=== PATIENT | male | born 1990 | race Caucasian/White ===

== ENCOUNTER 2017-11-06 21:14 | Inpatient (IN) | payer OTHER ==
[~2017-11-06] VITALS: Ht 172.7 cm; Wt 93.1 kg
[~2017-11-06 21:14] MED LIST: DIVA-68 PO; ETOMIDATE 40 MG/20 ML ONE; PROPOFOL 10 MG/ML, 100ML IV ONE; SUCCINYLCHOLINE 20 MG/ML, 10ML ONE
[2017-11-06] MEDS ORDERED: LORazepam 2 MG/ML, 1ML ONE (21:16)
[2017-11-06] MEDS ORDERED: SODIUM CHLORIDE 0.9% 1,000ML IVBOLUS ONE ×2 (21:30→22:00)
[2017-11-06] MEDS ORDERED: SODIUM CHLORIDE FLUSH 10ML SYR IVF ONE (21:30)
[2017-11-06] MEDS ORDERED: LEVETIRACETAM 1,000 MG in SODIUM CHLORIDE 0.9% 100 ML IV ONE (21:30)
[2017-11-06] MEDS ORDERED: LORazepam 2 MG/ML, 1ML IVPush ONE ×2 (21:30→22:00)
[2017-11-06] MEDS ORDERED: SODIUM CHLORIDE 0.9% 1,000 ML IV ONE (21:40)
[2017-11-06 21:51] LABS: BASOPHILS # (AUTO) 0.06 x10^3/uL (0-0.1); BASOPHILS % (AUTO) 1 % (0-1); EOSINOPHILS # (AUTO) 0.21 x10^3/uL (0-0.4); EOSINOPHILS % (AUTO) 2 % (1-7); LYMPHOCYTES # (AUTO) 3.42 x10^3/uL (1-3.4); LYMPHOCYTES % (AUTO) 36 % (22-44); MD NO; MEAN CORPUSCULAR HEMOGLOBIN 29.9 pg (27.5-34.5); MEAN CORPUSCULAR HGB CONC 34.2 g/dL (33.2-36.2); MEAN CORPUSCULAR VOLUME 87.6 fL (81-97); MEAN PLATELET VOLUME 8.5 fL (7.4-10.4); MONOCYTES # (AUTO) 0.63 x10^3/uL (0.2-0.8); MONOCYTES % (AUTO) 7 % (2-9); NEUTROPHILS # (AUTO) 5.16 x10^3/uL (1.8-6.8); NEUTROPHILS % (AUTO) 54 % (42-75); PLATELET COUNT 271 x10^3/uL (130-400); RED BLOOD COUNT 5.13 x10^6/uL (4.38-5.82); RED CELL DISTRIBUTION WIDTH 11.7 % (9.4-14.8)
[2017-11-06] MEDS: PROPOFOL 100 ML IV PRN (21:51)
[2017-11-06 22:00] LABS: ALBUMIN 4.2 g/dL (3.4-5.0); ANION GAP 9 mmol/L (5-15); CALCIUM 8.1 mg/dL (8.5-10.1); CHLORIDE 109 mmol/L (98-107); CREATININE 0.92 mg/dL (0.7-1.3)
[2017-11-06] MEDS ORDERED: MAGNESIUM SULFATE 1 GM, THIAMINE 100 MG, FOLIC ACID 1 MG, MVI ADULT 10 ML in SODIUM CHL... IV ONE (22:00)
[2017-11-06] MEDS ORDERED: ETOMIDATE 20 MG/10 ML IV ONE (22:00)
[2017-11-06] MEDS ORDERED: SUCCINYLCHOLINE 20 MG/ML, 10ML IVPush ONE (22:00)
[2017-11-06 22:07] LABS: SALICYLATE LEVEL 3.2 mg/dL (2.8-20.0)
[2017-11-06 22:11] LABS: ACETAMINOPHEN < 2 mcg/mL (10-30)
[2017-11-06] MEDS ORDERED: NS + 20MEQ KCL 1,000 ML IV SCH (23:22)
[2017-11-06] MEDS ORDERED: ONDANSETRON 2MG/ML, 2ML IVPush PRN (23:30)
[2017-11-06] MEDS ORDERED: morphine SULFATE 10 MG/ML, 1ML IVPush PRN (23:30)
[2017-11-06] MEDS ORDERED: LORazepam 0.5MG TABLET PO PRN (23:30)
[2017-11-06] MEDS ORDERED: LORazepam 2 MG/ML, 1ML IV PRN ×4 (23:30)
[2017-11-06] MEDS ORDERED: LORazepam 1MG TABLET PO PRN ×3 (23:30)
[2017-11-07] MEDS: PROPOFOL 100 ML IV PRN ×2 (00:14→04:53)
[2017-11-07] MEDS ORDERED: PHARMACY MAY ADJ FOR RENAL FX MC SCH (00:30)
[2017-11-07] MEDS ORDERED: LIDOCAINE-MPF 1%, 2ML ENDO PRN (00:30)
[2017-11-07] MEDS ORDERED: FENTANYL PF 100 MCG/2ML IVPush PRN (00:30)
[2017-11-07] MEDS: POTASSIUM CHLORIDE 20 MEQ, MAGNESIUM SULFATE 2 GM, THIAMINE 100 MG, MVI ADULT 10 ML, FO... IV SCH ×2 (00:45→23:29)
[2017-11-07] MEDS: ENOXAPARIN 40 MG/0.4 ML SQ SCH ×2 (00:52→23:32)
[2017-11-07] MEDS: PIPERACILLIN/TAZO/PMX 3.375GM 50 ML IV SCH ×4 (01:08→19:45)
[2017-11-07 01:30] VITALS: BP 144/106
[2017-11-07 01:57] LABS: MICROSCOPIC AUTO
[2017-11-07 01:58] LABS: CULTURE INDICATED? NO
[2017-11-07 02:03] LABS: AMPHETAMINE SCREEN, URINE Negative (Negative); BARBITURATE SCREEN, URINE Negative (Negative); BENZODIAZEPINE SCREEN, URINE Positive (Negative); CANNABINOID SCREEN, URINE Negative (Negative); COCAINE SCREEN, URINE Negative (Negative); METHADONE SCREEN, URINE Negative (Negative); OPIATE SCREEN, URINE Negative (Negative)
[2017-11-07 03:10] VITALS: BP 124/73
[2017-11-07 04:31] LABS: BASOPHILS # (AUTO) 0.05 x10^3/uL (0-0.1); BASOPHILS % (AUTO) 1 % (0-1); EOSINOPHILS # (AUTO) 0.12 x10^3/uL (0-0.4); EOSINOPHILS % (AUTO) 1 % (1-7); LYMPHOCYTES # (AUTO) 1.97 x10^3/uL (1-3.4); LYMPHOCYTES % (AUTO) 20 % (22-44); MD NO; MEAN CORPUSCULAR HEMOGLOBIN 29.4 pg (27.5-34.5); MEAN CORPUSCULAR HGB CONC 33.7 g/dL (33.2-36.2); MEAN CORPUSCULAR VOLUME 87.3 fL (81-97); MEAN PLATELET VOLUME 8.9 fL (7.4-10.4); MONOCYTES # (AUTO) 0.69 x10^3/uL (0.2-0.8); MONOCYTES % (AUTO) 7 % (2-9); NEUTROPHILS # (AUTO) 6.91 x10^3/uL (1.8-6.8); NEUTROPHILS % (AUTO) 71 % (42-75); PLATELET COUNT 251 x10^3/uL (130-400); RED BLOOD COUNT 4.91 x10^6/uL (4.38-5.82); RED CELL DISTRIBUTION WIDTH 11.9 % (9.4-14.8)
[2017-11-07 04:40] LABS: ANION GAP 9 mmol/L (5-15); CALCIUM 7.8 mg/dL (8.5-10.1); CHLORIDE 113 mmol/L (98-107); CREATININE 0.77 mg/dL (0.7-1.3)
[2017-11-07] MEDS ORDERED: LORazepam 2 MG/ML, 1ML IVPush PRN (07:30)
[2017-11-07] MEDS: PANTOPRAZOLE 40 MG IV IVPush SCH (08:12)
[2017-11-07] MEDS ORDERED: DIVALPROEX 500 MG TABLET.DR PO SCH (09:00)
[2017-11-07] MEDS ORDERED: VALPROATE SODIUM 250 MG/5 ML ORAL SOLN PO ONE (09:00)
[2017-11-07] MEDS ORDERED: NS + 20MEQ KCL 1,000 ML IV SCH (09:00)
[2017-11-07] MEDS: DIVALPROEX 500 MG TAB.ER.24H PO SCH (11:39)
[2017-11-07] MEDS: LEVETIRACETAM 500 MG TABLET PO SCH ×2 (11:39→20:54)
[2017-11-08] MEDS: PIPERACILLIN/TAZO/PMX 3.375GM 50 ML IV SCH ×2 (01:26→07:43)
[2017-11-08 04:00] VITALS: BP 114/62
[2017-11-08 04:23] LABS: ANION GAP 5 mmol/L (5-15); CALCIUM 7.7 mg/dL (8.5-10.1); CHLORIDE 112 mmol/L (98-107); CREATININE 0.84 mg/dL (0.7-1.3)
[2017-11-08] MEDS: LEVETIRACETAM 500 MG TABLET PO SCH ×2 (07:43→21:00)
[2017-11-08] MEDS: DIVALPROEX 500 MG TAB.ER.24H PO SCH (07:43)
[2017-11-08] MEDS: PANTOPRAZOLE 40 MG IV IVPush SCH (07:44)
[2017-11-08] MEDS: AMPICILLIN/SULBACTAM 3 GM in SODIUM CHLORIDE 0.9% 100 ML IV SCH ×3 (09:00→21:00)
[2017-11-08 12:20] VITALS: BP 112/67
[2017-11-08 20:00] VITALS: BP 115/70
[2017-11-09] MEDS: ENOXAPARIN 40 MG/0.4 ML SQ SCH (00:10)
[2017-11-09] MEDS: POTASSIUM CHLORIDE 20 MEQ, MAGNESIUM SULFATE 2 GM, THIAMINE 100 MG, MVI ADULT 10 ML, FO... IV SCH (00:10)
[2017-11-09 02:00] VITALS: BP 105/58
[2017-11-09] MEDS: AMPICILLIN/SULBACTAM 3 GM in SODIUM CHLORIDE 0.9% 100 ML IV SCH ×2 (03:55→09:08)
[2017-11-09 07:50] VITALS: BP 107/58
[2017-11-09] MEDS: DIVALPROEX 500 MG TAB.ER.24H PO SCH (09:08)
[2017-11-09] MEDS: LEVETIRACETAM 500 MG TABLET PO SCH (09:08)
[2017-11-09] MEDS ORDERED: CITA10TA8 PO (12:25)
[2017-11-09] MEDS ORDERED: DIVA-68 PO (12:26)
[2017-11-09] MEDS ORDERED: LEVE500T54 PO (13:04)
[2017-11-09] MEDS ORDERED: DIVA500T4 PO (13:04)
== END 2017-11-09 13:51 | disposition home or self-care (01) | DRG 208 ==
LOC: EDBD → MERGE 21:14 → ED 22:14 → EDIP 22:27 → CCU 11-07 00:03 → 4WST 11-08 12:19 → DCLOUNGE 11-09 13:38
PROVIDERS: ADMIT Family Medicine; ATTEND Family Medicine
PROC: 5A1935Z Respiratory Ventilation, Less than 24 Consecutive Hours (ICD-10-PCS; principal; 2017-11-06)
PROC: 0BH17EZ Insertion of Endotracheal Airway into Trachea, Via Natural or Artificial Opening (ICD-10-PCS; 2017-11-06)
PROC: 0T9B70Z Drainage of Bladder with Drainage Device, Via Natural or Artificial Opening (ICD-10-PCS; 2017-11-07)
DX: J96.01 Acute respiratory failure with hypoxia (principal); Z99.11 Dependence on respirator [ventilator] status; G92 Toxic encephalopathy; G40.201 Localization-related (focal) (partial) symptomatic epilepsy and epileptic syndromes with complex partial seizures, not intractable, with status epilepticus; J98.11 Atelectasis; F10.129 Alcohol abuse with intoxication, unspecified; F17.200 Nicotine dependence, unspecified, uncomplicated; G31.9 Degenerative disease of nervous system, unspecified; Z79.899 Other long term (current) drug therapy; Z91.14 Patient's other noncompliance with medication regimen; Z88.8 Allergy status to other drugs, medicaments and biological substances; Z88.5 Allergy status to narcotic agent; Z87.828 Personal history of other (healed) physical injury and trauma
CPT/HCPCS: 31500; 36415; 36600; 70450; 71045; 80048; 80307; 80329; 81001; 82040; 82803; 82805; 83735; 84100; 84478; 85025; 87070; 87081; 87205; 93005; 94002; 94003; 96361; 96365; 96375; J0295; J1650; J1953; J2543; J2704; J3411; J3475; J3480; J7042; C9113; G0480; J0330; J2060; J7030

== ENCOUNTER 2018-03-22 22:28 | Emergency (ER) | payer OTHER ==
[~2018-03-22] VITALS: Ht 177.8 cm; Wt 80.0 kg
[~2018-03-22 22:28] MED LIST changes: +CITA10TA8 PO; +DIVA-61 PO; -DIVA-68 PO; +DIVA500T4 PO; -ETOMIDATE 40 MG/20 ML ONE; +LEVE500T54 PO; -PROPOFOL 10 MG/ML, 100ML IV ONE; -SUCCINYLCHOLINE 20 MG/ML, 10ML ONE
[2018-03-22 23:01] LABS: BASOPHILS # (AUTO) 0.05 x10^3/uL (0-0.1); BASOPHILS % (AUTO) 1 % (0-1); EOSINOPHILS # (AUTO) 0.17 x10^3/uL (0-0.4); EOSINOPHILS % (AUTO) 2 % (1-7); LYMPHOCYTES # (AUTO) 1.63 x10^3/uL (1-3.4); LYMPHOCYTES % (AUTO) 19 % (22-44); MD NO; MEAN CORPUSCULAR HEMOGLOBIN 29.1 pg (27.5-34.5); MEAN CORPUSCULAR HGB CONC 33.9 g/dL (33.2-36.2); MEAN CORPUSCULAR VOLUME 85.8 fL (81-97); MEAN PLATELET VOLUME 8.6 fL (7.4-10.4); MONOCYTES # (AUTO) 0.63 x10^3/uL (0.2-0.8); MONOCYTES % (AUTO) 7 % (2-9); NEUTROPHILS # (AUTO) 6.25 x10^3/uL (1.8-6.8); NEUTROPHILS % (AUTO) 72 % (42-75); PLATELET COUNT 250 x10^3/uL (130-400); RED BLOOD COUNT 5.32 x10^6/uL (4.38-5.82)
[2018-03-22 23:11] LABS: ALANINE AMINOTRANSFERASE 42 U/L (12-78); ALBUMIN 4.5 g/dL (3.4-5.0); ANION GAP 13 mmol/L (5-15); CALCIUM 9.1 mg/dL (8.5-10.1); CHLORIDE 101 mmol/L (98-107)
[2018-03-22 23:24] LABS: ALKALINE PHOSPHATASE 72 U/L (45-117); BILIRUBIN,TOTAL 0.9 mg/dL (0.2-1.0); CREATINE KINASE, TOTAL 1579 U/L (39-308); CREATININE 1.49 mg/dL (0.7-1.3)
[2018-03-22] MEDS ORDERED: SODIUM CHLORIDE FLUSH 10ML SYR IVF ONE (23:30)
[2018-03-22] MEDS ORDERED: SODIUM CHLORIDE 0.9% 1,000ML IVBOLUS ONE (23:30)
[2018-03-22 23:34] LABS: MICROSCOPIC INDICATED
[2018-03-22 23:50] LABS: CULTURE INDICATED? YES
[2018-03-23 00:29] VITALS: BP 128/73
== END 2018-03-23 00:41 | disposition home or self-care (01) ==
LOC: ED 23:59
DX: R11.2 Nausea with vomiting, unspecified (principal); E86.0 Dehydration; M62.82 Rhabdomyolysis; G40.901 Epilepsy, unspecified, not intractable, with status epilepticus
CPT/HCPCS: 36415; 80053; 81001; 82550; 83735; 85025; 87086; 93005; 96360; 99285; J7030

== ENCOUNTER 2018-06-11 18:51 | Emergency (ER) | payer OTHER ==
[~2018-06-11] VITALS: Ht 165.1 cm; Wt 75.0 kg
--- NOTE | 2018-06-11 19:41 | NUR ---
Franco ordered from pharmacy, side rails up times times two, call valencia in reach. Pt counselled on need to continue taking his seizure medications as this will prevent his seizures, last seizure 9 months ago after also stopping his medications. Disorder since 12 years old.
--- NOTE | 2018-06-11 19:59 | NUR ---
PT VERY DIFFICLUT IV START. MULTIPLE ATTEMPTS MADE BY MULTIPLE RNS. IV PLACED AT THIS TIME. BA RECEIVED FROM PHARMACY.
[2018-06-11] MEDS ORDERED: LEVETIRACETAM 1,000 MG in SODIUM CHLORIDE 0.9% 100 ML IV ONE (20:00)
[2018-06-11 20:04] VITALS: BP 123/75
--- NOTE | 2018-06-11 20:05 | NUR ---
BA INFUSING AT THIS TIME, SIDE RAILS UP TIMES TWO, AT BEDSIDE. CALL UMAÑA IN REACH AND AWARE OF USE
[2018-06-11 20:38] LABS: ALBUMIN 3.6 g/dL (3.4-5.0); ANION GAP 5 mmol/L (5-15); CALCIUM 8.3 mg/dL (8.5-10.1); CHLORIDE 110 mmol/L (98-107)
[2018-06-11 20:39] LABS: BASOPHILS % (AUTO) 1 % (0-1); CREATININE 0.81 mg/dL (0.7-1.3); EOSINOPHILS # (AUTO) 0.21 x10^3/uL (0-0.4); EOSINOPHILS % (AUTO) 3 % (1-7); LYMPHOCYTES # (AUTO) 1.78 x10^3/uL (1-3.4); LYMPHOCYTES % (AUTO) 22 % (22-44); MD NO; MEAN CORPUSCULAR HEMOGLOBIN 29.2 pg (27.5-34.5); MEAN CORPUSCULAR HGB CONC 33.6 g/dL (33.2-36.2); MEAN CORPUSCULAR VOLUME 87.1 fL (81-97); MEAN PLATELET VOLUME 8.9 fL (7.4-10.4); MONOCYTES # (AUTO) 0.61 x10^3/uL (0.2-0.8); MONOCYTES % (AUTO) 8 % (2-9); NEUTROPHILS # (AUTO) 5.33 x10^3/uL (1.8-6.8); NEUTROPHILS % (AUTO) 66 % (42-75); PLATELET COUNT 255 x10^3/uL (130-400)
--- NOTE | 2018-06-11 21:19 | NUR ---
DISCUSSION WITH PT REGARDING THE IMPORTANCE OF TAKING HIS MEDICATIONS, SIGNIFICANT OTHER AGREEABLE WITH THIS. PT ENCOURAGED TO F/U WITH HIS NEUROLOGIST FOR POSSIBLE CHANGE OF MEDICATIONS PT STOPS BECAUSE HE DOES NOT LIKE SIDE EFFECTS.
== END 2018-06-11 21:45 | disposition home or self-care (01) ==
LOC: ED 21:19
DX: G40.419 Other generalized epilepsy and epileptic syndromes, intractable, without status epilepticus (principal); R89.2 Abnormal level of other drugs, medicaments and biological substances in specimens from other organs, systems and tissues; Z88.6 Allergy status to analgesic agent
CPT/HCPCS: 36415; 80048; 82040; 85025; 96365; 99283; J1953

== ENCOUNTER 2018-07-19 22:16 | Emergency (ER) | payer OTHER ==
[~2018-07-19] VITALS: Ht 172.7 cm; Wt 75.0 kg
--- NOTE | 2018-07-19 22:28 | NUR ---
ASSUMED CARE OF PATIENT. PATIENT BIB [facility]. PT WAS AT WORK AND HAD A WITNESSED SEIZURE. VS STABLE. EKG DONE. INFORMATION SYSTEMS DIRECTOR. NSR NOTED. CALL LIGHT IN PLACE. PT GIVEN A WARM BLANKET. SEIZURE PRECAUTIONS IN PLACE. WILL CONTINUE TO MONITOR.
--- NOTE | 2018-07-19 23:00 | NUR ---
PT RESTING IN ROOM. NO ACUTE DISTRESS NOTED. TIRE CENTER SUPERVISOR. CALL LIGHT IN PLACE. WILL CONTINUE TO MONITOR.
--- NOTE | 2018-07-19 23:19 | NUR ---
PT SEEN BY KINA Batres NP. PT RESTING IN ROOM. REGULAR RESP. PRESSURE STEAMER TENDER ON. NSR NOTED. WILL CONTINUE TO MONITOR.
[2018-07-19] MEDS ORDERED: SODIUM CHLORIDE FLUSH 10ML SYR IVF ONE (23:30)
[2018-07-19 23:45] LABS: BASOPHILS # (AUTO) 0.06 x10^3/uL (0-0.1); BASOPHILS % (AUTO) 1 % (0-1); EOSINOPHILS # (AUTO) 0.17 x10^3/uL (0-0.4); EOSINOPHILS % (AUTO) 3 % (1-7); LYMPHOCYTES # (AUTO) 2.33 x10^3/uL (1-3.4); LYMPHOCYTES % (AUTO) 38 % (22-44); MD NO; MEAN CORPUSCULAR HEMOGLOBIN 29.2 pg (27.5-34.5); MEAN CORPUSCULAR HGB CONC 33.9 g/dL (33.2-36.2); MEAN CORPUSCULAR VOLUME 86.1 fL (81-97); MEAN PLATELET VOLUME 8.7 fL (7.4-10.4); MONOCYTES # (AUTO) 0.54 x10^3/uL (0.2-0.8); MONOCYTES % (AUTO) 9 % (2-9); NEUTROPHILS % (AUTO) 49 % (42-75); PLATELET COUNT 253 x10^3/uL (130-400); RED BLOOD COUNT 4.67 x10^6/uL (4.38-5.82); RED CELL DISTRIBUTION WIDTH 12.1 % (9.4-14.8)
[2018-07-19 23:56] LABS: ALANINE AMINOTRANSFERASE 23 U/L (12-78); ALBUMIN 3.3 g/dL (3.4-5.0); ANION GAP 3 mmol/L (5-15); CHLORIDE 112 mmol/L (98-107); CREATININE 0.72 mg/dL (0.7-1.3)
--- NOTE | 2018-07-19 23:57 | NUR ---
PT RESTING IN ROOM. REGUALR RESP. NO ACUTE DISTRESS NOTED. CALL LIGHT IN PLACE. WILL CONTINUE TO MONITOR.
[2018-07-19 23:58] LABS: ALKALINE PHOSPHATASE 78 U/L (45-117); BILIRUBIN,TOTAL 0.1 mg/dL (0.2-1.0); TOTAL PROTEIN 6.3 g/dL (6.4-8.2)
[2018-07-20 00:43] VITALS: BP 114/63
== END 2018-07-20 01:55 | disposition home or self-care (01) ==
LOC: ED 23:54
DX: G40.919 Epilepsy, unspecified, intractable, without status epilepticus (principal)
CPT/HCPCS: 36415; 80053; 85025; 93005; 99284

== ENCOUNTER 2018-07-27 13:45 | Emergency (ER) | payer OTHER ==
[~2018-07-27] VITALS: Ht 165.1 cm; Wt 82.0 kg
--- NOTE | 2018-07-27 14:02 | NUR ---
LUNCH RN: PT BIB FIRE FROM [facility] [place] WHEN PT STATES "I GOT A FUNNY TASTE IN MY MOUTH" THEN PT HAD WITNESSED SEIZURE TONIC CLONIC FOR 2 MINUTES, HAD SECOND SEIZURE DURING TRANSPORT, GIVEN 2MG VERSED. PT A&OX4 UPON ARRIVAL, SLOW SPEECH, VERY DROWSY BUT AROUSABLE. PT STATES STARTED WORKING DAY SHIFT 2 DAYS AGO AND CHANGE HAS BEEN HARD. CONNECTED TO ALL MONITORS, VSS. SEIZURE PRECAUTIONS IN PLACE. MD TO BEDSIDE FOR ASSESSMENT. ORDERS RECEIVED. CALL LIGHT WITHIN REACH.
[2018-07-27 14:29] LABS: ANION GAP 4 mmol/L (5-15); CALCIUM 8.5 mg/dL (8.5-10.1); CHLORIDE 109 mmol/L (98-107); CREATININE 0.87 mg/dL (0.7-1.3)
[2018-07-27 14:31] LABS: BASOPHILS # (AUTO) 0.05 x10^3/uL (0-0.1); BASOPHILS % (AUTO) 1 % (0-1); EOSINOPHILS # (AUTO) 0.19 x10^3/uL (0-0.4); EOSINOPHILS % (AUTO) 3 % (1-7); LYMPHOCYTES # (AUTO) 2.08 x10^3/uL (1-3.4); LYMPHOCYTES % (AUTO) 29 % (22-44); MD NO; MEAN CORPUSCULAR HEMOGLOBIN 28.4 pg (27.5-34.5); MEAN CORPUSCULAR HGB CONC 33.3 g/dL (33.2-36.2); MEAN CORPUSCULAR VOLUME 85.2 fL (81-97); MEAN PLATELET VOLUME 8.7 fL (7.4-10.4); MONOCYTES # (AUTO) 0.39 x10^3/uL (0.2-0.8); MONOCYTES % (AUTO) 6 % (2-9); NEUTROPHILS # (AUTO) 4.52 x10^3/uL (1.8-6.8); NEUTROPHILS % (AUTO) 63 % (42-75); PLATELET COUNT 267 x10^3/uL (130-400); RED BLOOD COUNT 5.11 x10^6/uL (4.38-5.82); RED CELL DISTRIBUTION WIDTH 12.1 % (9.4-14.8)
[2018-07-27 15:49] VITALS: BP 105/49
== END 2018-07-27 15:51 | disposition home or self-care (01) ==
LOC: ED 14:11
DX: G40.919 Epilepsy, unspecified, intractable, without status epilepticus (principal)
CPT/HCPCS: 36415; 80048; 85025; 99283

== ENCOUNTER 2018-08-10 18:55 | Emergency (ER) | payer OTHER ==
[~2018-08-10] VITALS: Ht 165.1 cm; Wt 76.1 kg
[2018-08-10] MEDS ORDERED: MORPHINE SULFATE 4 MG/ML, 1ML IVPush PRN (19:30)
[2018-08-10] MEDS ORDERED: ONDANSETRON 2MG/ML, 2ML IVPush ONE (19:30)
--- NOTE | 2018-08-10 19:41 | NUR ---
LESIONS UNDER TONGUE
[2018-08-10 19:43] LABS: BASOPHILS # (AUTO) 0.06 x10^3/uL (0-0.1); BASOPHILS % (AUTO) 0 % (0-1); EOSINOPHILS # (AUTO) 0.15 x10^3/uL (0-0.4); EOSINOPHILS % (AUTO) 1 % (1-7); LYMPHOCYTES # (AUTO) 2.23 x10^3/uL (1-3.4); LYMPHOCYTES % (AUTO) 15 % (22-44); MD NO; MEAN CORPUSCULAR HEMOGLOBIN 29.1 pg (27.5-34.5); MEAN CORPUSCULAR HGB CONC 33.7 g/dL (33.2-36.2); MEAN CORPUSCULAR VOLUME 86.4 fL (81-97); MEAN PLATELET VOLUME 8.8 fL (7.4-10.4); MONOCYTES # (AUTO) 0.89 x10^3/uL (0.2-0.8); MONOCYTES % (AUTO) 6 % (2-9); NEUTROPHILS # (AUTO) 11.24 x10^3/uL (1.8-6.8); NEUTROPHILS % (AUTO) 77 % (42-75); PLATELET COUNT 236 x10^3/uL (130-400); RED BLOOD COUNT 4.76 x10^6/uL (4.38-5.82); RED CELL DISTRIBUTION WIDTH 12.4 % (9.4-14.8)
[2018-08-10] MEDS ORDERED: HYDROmorphone 1 MG/ML, 1ML ONE (19:54)
[2018-08-10] MEDS ORDERED: ONDANSETRON 2MG/ML, 2ML ONE (19:54)
[2018-08-10 19:56] LABS: ALANINE AMINOTRANSFERASE 21 U/L (12-78); ALBUMIN 3.6 g/dL (3.4-5.0); ANION GAP 7 mmol/L (5-15); CHLORIDE 110 mmol/L (98-107); CREATININE 0.99 mg/dL (0.7-1.3)
[2018-08-10 19:59] LABS: ALKALINE PHOSPHATASE 75 U/L (45-117); BILIRUBIN,TOTAL 0.2 mg/dL (0.2-1.0); TOTAL PROTEIN 6.6 g/dL (6.4-8.2)
[2018-08-10] MEDS ORDERED: HYDROmorphone 1 MG/ML, 1ML IV ONE (20:00)
[2018-08-10 20:16] VITALS: BP 109/60
--- NOTE | 2018-08-10 20:16 | NUR ---
MEDICATED FOR PAIN AND IV ESTABLISHED FOR CT
[2018-08-10] MEDS ORDERED: OMNIPAQUE 350 MG/ML, 100ML BOTTLE ONE (21:18)
[2018-08-10] MEDS ORDERED: PENICILLIN VK 500MG TABLET ONE (21:22)
--- NOTE | 2018-08-10 21:29 | NUR ---
Patient given discharge instructions and they have confirmed that they understand the instructions. Patient ambulatory with steady gait.
[2018-08-10] MEDS ORDERED: PENICILLIN VK 500MG TABLET PO ONE (21:30)
== END 2018-08-10 21:32 | disposition home or self-care (01) ==
LOC: ED 21:05
DX: K08.89 Other specified disorders of teeth and supporting structures (principal); G40.909 Epilepsy, unspecified, not intractable, without status epilepticus
CPT/HCPCS: 36415; 70491; 80053; 83605; 84145; 85025; 96374; 96375; 99284; J1170; J2405; Q9967